=== PATIENT | female | born 1995 | race African-American/Black ===

== ENCOUNTER → 2020-10-31 | Day surgery (SDC) | payer OTHER ==
[~2020-10-31] MED LIST: AMOXICILLIN500 MG PO; MOUTH RINSE
[2020-10-31 09:45] LABS: HCG (URINE) SCREEN NEGATIVE (NEGATIVE)
[2020-10-31 10:15] LABS: BASOPHIL 0.8 % (0-2); EOSINOPHIL 3.3 % (0-5); HCT 38.9 % (37.0-47.0); HGB 12.6 g/dl (12.5-16.0); LYMPHOCYTE 34.9 % (15-48); MCH 29.6 pg (25.0-31.0); MCHC 32.4 g/dL (32.0-36.0); MCV 91.3 fL (78.0-100.0); MONOCYTE 7.1 % (0-12); MPV 10.3 fL (6.0-9.5); NEUTROPHIL 53.5 % (41-80); NRBC 0; PLT 275 K/uL (150-400); RBC 4.26 M/uL (4.20-5.40); RDW 13.2 % (11.5-14.0); WBC 4.8 K/uL (4.0-10.5)
== END | disposition home or self-care (01) ==
LOC: FAS 09:13
PROVIDERS: Oral & Maxillofacial Surgery
DX: K01.1 Impacted teeth (principal); K09.0 Developmental odontogenic cysts; K05.30 Chronic periodontitis, unspecified; J45.909 Unspecified asthma, uncomplicated; M85.88 Other specified disorders of bone density and structure, other site; F17.210 Nicotine dependence, cigarettes, uncomplicated; Z86.16 Personal history of COVID-19; Z86.69 Personal history of other diseases of the nervous system and sense organs
CPT/HCPCS: 36415; 84703; 85025; J1100; J1885; J2250; J2405; J2704; J2710; J3010; J7120